=== PATIENT | female | born 1985 | race Two or more races ===

== ENCOUNTER 2018-12-22 19:09 | Emergency (ER) | payer MEDICAID ==
[~2018-12-22] VITALS: Ht 154.9 cm; Wt 83.9 kg
[2018-12-22 20:10] LABS: Basophils # (auto) 0 uL; Basophils % (auto) 0.4 % (0.0-2.0); Eosinophils # (auto) 0.2 uL; Eosinophils % (auto) 2.7 % (0.0-7.0); Hematocrit 40.1 % (36.0-46.0); Hemoglobin 13.6 g/dL (12.2-16.2); Lymphocytes # (auto) 2.9 uL; Lymphocytes % (auto) 36.4 % (10.0-50.0); Mean Corpuscular Hgb Conc. 33.9 g/dL (32.0-36.0); Mean Corpuscular Volume 88.4 fL (80.0-100.0); Monocytes # (auto) 0.6 uL; Monocytes % (auto) 7.3 % (0.0-12.0); Neutrophils # (auto) 4.2 uL; Neutrophils % (auto) 53.2 % (37.0-80.0); Nucleated Red Blood Cells % 0.1 %; Platelet Count (auto) 234 10^3/uL (140-450); Red Blood Cells 4.53 10^6/uL (4.0-5.20); Red Cell Distribution Width 12.7 % (11.8-14.3); White Blood Cell 7.9 10^3/uL (4.4-10.8)
[2018-12-22 20:30] LABS: Albumin 4.1 g/dL (3.4-5.0); Anion Gap 7 (5-15); Blood Urea Nitrogen 12 mg/dL (7-18); Carbon Dioxide 28 mmol/L (21-32); Chloride 105 mmol/L (98-107); Glucose 113 mg/dL (74-106); Potassium 3.5 mmol/L (3.5-5.1); Sodium 140 mmol/L (136-145)
[2018-12-22 20:36] LABS: Alanine Aminotransferase 41 U/L (13-56); Alkaline Phosphatase 69 U/L (45-117); Aspartate Aminotransferase 24 U/L (15-37); Bilirubin, Total 0.3 mg/dL (0.2-1.0); GFR African American 140 mL/min; GFR Non-African American 116 mL/min; Total Protein 8.4 g/dL (6.4-8.2)
[2018-12-23] MEDS ORDERED: MORPHINE SULFATE 4 MG/ML SYR/VIAL IV ONE ×2 (02:30→03:00)
[2018-12-23] MEDS ORDERED: CYCLOBENZAPRINE HCL 10 MG TAB PO ONE (03:15)
[2018-12-23] MEDS ORDERED: KETOROLAC TROMETH 30 MG/ML 1ML VIAL IV ONE (03:15)
[2018-12-23 03:58] VITALS: BP 95/41
== END 2018-12-23 04:00 | disposition home or self-care (01) ==
LOC: ER 19:16
DX: S23.3XXA Sprain of ligaments of thoracic spine, initial encounter (principal); R07.9 Chest pain, unspecified; X58.XXXA Exposure to other specified factors, initial encounter; Y93.89 Activity, other specified; Y92.89 Other specified places as the place of occurrence of the external cause; Y99.8 Other external cause status
CPT/HCPCS: 36415; 71046; 80053; 84484; 85025; 96374; 96375; 99284; J1885; J2270; 93005

== ENCOUNTER 2022-10-28 04:08 | Inpatient (IN) | payer MEDICAID ==
[2022-10-27 11:55] LABS: Basophils # (auto) 0 10 ^3/uL (0-0.2); Basophils % (auto) 0.7 % (0.0-2.0); Eosinophils # (auto) 0.1 10 ^3/uL (0-0.8); Eosinophils % (auto) 1.4 % (0.0-7.0); Hematocrit 33.6 % (36.0-46.0); Lymphocytes # (auto) 1.8 10 ^3/uL (0.4-5.4); Lymphocytes % (auto) 33.7 % (10.0-50.0); Mean Corpuscular Hgb Conc. 32.8 g/dL (32.0-36.0); Mean Corpuscular Volume 85.3 fL (80.0-100.0); Monocytes # (auto) 0.3 10 ^3/uL (0-1.3); Monocytes % (auto) 5.4 % (0.0-12.0); Neutrophils # (auto) 3.1 10 ^3/uL (1.6-8.6); Neutrophils % (auto) 58.8 % (37.0-80.0); Nucleated Red Blood Cells % 0.3 %; Red Blood Cells 3.94 10^6/uL (4.0-5.20); Red Cell Distribution Width 15.9 % (11.8-14.3); White Blood Cell 5.3 10^3/uL (4.4-10.8)
[2022-10-27 12:02] LABS: INR 0.93 (0.9-1.15); Partial Thromboplastin Time 25.5 SEC (24.5-34.5); Prothrombin Time 9.8 sec (9.3-11.8)
[2022-10-27 12:58] LABS: Calcium 8.2 mg/dL (8.5-10.1); Potassium 3.8 mmol/L (3.5-5.1)
[2022-10-27 13:02] LABS: Albumin 2.5 g/dL (3.4-5.0); BUN/Creatinine Ratio 21.7 (10.0-20.0)
[2022-10-27 13:04] LABS: Bilirubin, Total 0.2 mg/dL (0.2-1.0); Total Protein 6.7 g/dL (6.4-8.2)
[2022-10-27 18:17] LABS: Amphetamine Screen, Urine NEGATIVE (NEGATIVE); Barbiturate Scree,Urine NEGATIVE (NEGATIVE); Benzodiazephine Screen, Urine NEGATIVE (NEGATIVE); Cannabinoid Screen, Urine NEGATIVE (NEGATIVE); Cocaine Screen, Urine NEGATIVE (NEGATIVE); Opiate Scree,Urine NEGATIVE (NEGATIVE); Phencyclidine Screen, Urine NEGATIVE (NEGATIVE)
[2022-10-27 19:07] LABS: Alcohol, Urine < 3.0 mg/dL (0-10)
[2022-10-28] VITALS (15 sets, daily range): BP systolic 102–135; BP diastolic 60–83; PULSE 50–71; RESP 16; TEMP 98.1–98.5; O2SAT 95–100
[~2022-10-28] VITALS: Ht 152.4 cm; Wt 93.9 kg
[2022-10-28] MEDS ORDERED: ceFAZolin 1GM/50ML 50 ML IV ONE (04:30)
[2022-10-28] MEDS ORDERED: LACTATED RINGER'S 1,000 ML IV ONE (04:30)
[2022-10-28] MEDS: LACTATED RINGER'S 1,000 ML IV SCH ×3 (06:07→18:21)
[2022-10-28] MEDS ORDERED: DexAMETHasone SOD PHOS 10MG/1ML VIAL INJ ONE (06:35)
[2022-10-28] MEDS ORDERED: fentaNYL CITRATE 100 MCG/2 ML VL ONE (06:35)
[2022-10-28] MEDS ORDERED: oxyTOCIN 10 UNIT/ML 10ML VIAL ONE (06:35)
[2022-10-28] MEDS ORDERED: MORPHINE SULF PF 5 MG/10 ML VIAL ONE (06:35)
[2022-10-28] MEDS ORDERED: ONDANSETRON HCL 4 MG/2 ML VIAL ONE (06:35)
[2022-10-28] MEDS ORDERED: ceFAZolin 1GM VL ONE (07:03)
[2022-10-28 07:06] LABS: RPR Non Reactive (Non Reactive)
[2022-10-28] MEDS ORDERED: ePHEDrine SULFATE 50 MG/ML AMP ONE (07:25)
[2022-10-28] MEDS ORDERED: GUM (CHEWING) 1 GUM CHEW CHEW ONE (07:30)
[2022-10-28] MEDS ORDERED: ONDANSETRON HCL 4 MG/2 ML VIAL IV PRN ×2 (07:30→08:30)
[2022-10-28] MEDS ORDERED: ceFAZolin 1GM/50ML 50 ML IV SCH (07:30)
[2022-10-28] MEDS ORDERED: LACT. RINGERS/OXYTOCIN 20UNITS 1,000 ML IV ONE (07:30)
[2022-10-28] MEDS ORDERED: PERCOT PO ×2 (07:59→08:03)
[2022-10-28] MEDS ORDERED: DOCU-94 PO (07:59)
[2022-10-28] MEDS ORDERED: IBUP-1456 PO (07:59)
[2022-10-28] MEDS ORDERED: NALBUPHINE HCL 10 MG/1ml INJECTION IV ONE (08:30)
[2022-10-28] MEDS ORDERED: HYDROmorphone HCL 2 MG/ML VL/or syr IV PRN (08:30)
[2022-10-28] MEDS ORDERED: NALOXONE HCL 0.4 MG/ML VIAL IV PRN (08:30)
[2022-10-28] MEDS ORDERED: diphenhdrAMINE HCL 50 MG/1 ML VL IV PRN (08:30)
[2022-10-28] MEDS: ACETAMINOPHEN IV 1000 MG/100ML (10MG/ML) IV PRN ×2 (11:02→18:55)
[2022-10-28] MEDS ORDERED: ceFAZolin 2 GM/D5W100ml 100 ML IV SCH (15:00)
[2022-10-28] MEDS: KETOROLAC TROMETH 30 MG/ML 1ML VIAL IV PRN ×2 (16:03→23:36)
[2022-10-28] MEDS: ceFAZolin 1GM/50ML 50 ML IV SCH (22:01)
[2022-10-28 22:07] LABS: Basophils # (auto) 0 10 ^3/uL (0-0.2); Basophils % (auto) 0.4 % (0.0-2.0); Eosinophils # (auto) 0 10 ^3/uL (0-0.8); Hematocrit 30.8 % (36.0-46.0); Hemoglobin 10.1 g/dL (12.2-16.2); Lymphocytes # (auto) 2.1 10 ^3/uL (0.4-5.4); Lymphocytes % (auto) 24.6 % (10.0-50.0); Mean Corpuscular Hemoglobin 28.1 pg (28.0-32.0); Mean Corpuscular Hgb Conc. 32.9 g/dL (32.0-36.0); Mean Corpuscular Volume 85.4 fL (80.0-100.0); Monocytes # (auto) 0.5 10 ^3/uL (0-1.3); Monocytes % (auto) 5.3 % (0.0-12.0); Neutrophils # (auto) 5.9 10 ^3/uL (1.6-8.6); Neutrophils % (auto) 69.7 % (37.0-80.0); Red Blood Cells 3.61 10^6/uL (4.0-5.20); Red Cell Distribution Width 15.6 % (11.8-14.3); White Blood Cell 8.5 10^3/uL (4.4-10.8)
[2022-10-29] VITALS (11 sets, daily range): BP systolic 107–136; BP diastolic 57–76; PULSE 53–73; RESP 16–20; TEMP 97.7–98.1; O2SAT 96–100
[2022-10-29] MEDS: ACETAMINOPHEN IV 1000 MG/100ML (10MG/ML) IV PRN (03:18)
[2022-10-29] MEDS: LACTATED RINGER'S 1,000 ML IV SCH (03:20)
[2022-10-29] MEDS: ceFAZolin 1GM/50ML 50 ML IV SCH (06:30)
[2022-10-29 06:52] LABS: Basophils # (auto) 0 10 ^3/uL (0-0.2); Basophils % (auto) 0.5 % (0.0-2.0); Eosinophils # (auto) 0.1 10 ^3/uL (0-0.8); Lymphocytes # (auto) 2.5 10 ^3/uL (0.4-5.4); Lymphocytes % (auto) 36.6 % (10.0-50.0); Mean Corpuscular Hemoglobin 28.3 pg (28.0-32.0); Mean Corpuscular Hgb Conc. 33.3 g/dL (32.0-36.0); Mean Corpuscular Volume 84.9 fL (80.0-100.0); Monocytes # (auto) 0.4 10 ^3/uL (0-1.3); Monocytes % (auto) 6.1 % (0.0-12.0); Neutrophils # (auto) 3.9 10 ^3/uL (1.6-8.6); Neutrophils % (auto) 55.8 % (37.0-80.0); Nucleated Red Blood Cells % 0.2 %; Red Blood Cells 3.54 10^6/uL (4.0-5.20); Red Cell Distribution Width 16.1 % (11.8-14.3); White Blood Cell 6.9 10^3/uL (4.4-10.8)
[2022-10-29] MEDS: KETOROLAC TROMETH 30 MG/ML 1ML VIAL IV PRN (07:12)
[2022-10-29] MEDS ORDERED: HYDROcodone-ACET 5/325MG TAB PO PRN (12:15)
[2022-10-29] MEDS ORDERED: BISACODYL 10 MG RECT SUPP PR PRN (12:15)
[2022-10-29] MEDS: HYDROcodone-ACET 5/325MG TAB PO PRN ×2 (15:16→18:58)
[2022-10-29] MEDS: SIMETHICONE 80 MG CHEWABLE TABLET PO SCH ×2 (16:39→22:00)
[2022-10-29] MEDS: IBUPROFEN 800 MG TAB PO PRN ×2 (16:39→23:47)
[2022-10-29] MEDS: DOCUSATE SOD 100 MG CAP PO SCH (22:14)
[2022-10-30 02:52] VITALS: BP 129/79; PULSE 56; RESP 16; TEMP 97.9; O2SAT 97
[2022-10-30] MEDS: HYDROcodone-ACET 5/325MG TAB PO PRN ×2 (05:15→10:09)
[2022-10-30 07:10] VITALS: BP 126/70; PULSE 60; RESP 17; TEMP 97.7; O2SAT 98
[2022-10-30] MEDS: SIMETHICONE 80 MG CHEWABLE TABLET PO SCH (07:38)
[2022-10-30] MEDS: IBUPROFEN 800 MG TAB PO PRN (08:01)
[2022-10-30] MEDS ORDERED: DOCUSATE CALCIUM 240 MG CAP PO SCH (10:00)
[2022-10-30] MEDS: DOCUSATE SOD 100 MG CAP PO SCH (10:09)
[2022-10-30 10:40] VITALS: BP 117/69; PULSE 82; RESP 18; TEMP 98.2; O2SAT 97
[2022-10-30 22:06] LABS: Treponema pallidum Ab (FTA-Ab) Non Reactive (Non Reactive)
== END 2022-10-30 10:40 | disposition home or self-care (01) | DRG 539 ==
LOC: LDRP 04:08 → UNDOADMIN 04:08 → LDRP 04:19
PROVIDERS: ADMIT Obstetrics & Gynecology; ATTEND Obstetrics & Gynecology
PROC: 0UL70CZ Occlusion of Bilateral Fallopian Tubes with Extraluminal Device, Open Approach (ICD-10-PCS; 2022-10-28)
PROC: 10D00Z1 Extraction of Products of Conception, Low, Open Approach (ICD-10-PCS; principal; 2022-10-28 07:13)
DX: O99.214 Obesity complicating childbirth (principal); E66.01 Morbid (severe) obesity due to excess calories; O34.211 Maternal care for low transverse scar from previous cesarean delivery; O48.0 Post-term pregnancy; Z37.0 Single live birth; Z3A.40 40 weeks gestation of pregnancy; Z30.2 Encounter for sterilization
CPT/HCPCS: 36415; 59025; 62282; 80053; 80307; 85025; 85610; 85730; 86592; 86850; 86900; 86901; 93971; 94760; 94762; 96360; 96361; 96365; 96366; 96374; 96375; G0378; J0131; J0690; J1100; J1885; J2405; J2590